=== PATIENT | female | born 1960 | race Caucasian/White ===

== ENCOUNTER 2016-12-06 22:19 | Emergency (ER) | payer OTHER ==
[~2016-12-06 22:19] MED LIST: E-MYCIN250 MG PO; PHENERGAN PO
== END 2016-12-06 22:55 | disposition home or self-care (01) ==
LOC: CED 22:19
DX: M70.51 Other bursitis of knee, right knee (principal); F17.200 Nicotine dependence, unspecified, uncomplicated; Z88.0 Allergy status to penicillin; Z88.5 Allergy status to narcotic agent
CPT/HCPCS: 99283